=== PATIENT | male | born 2000 | race African-American/Black ===

== ENCOUNTER 2018-08-29 09:25 | Inpatient (IN) ==
[2018-08-29] MEDS ORDERED: SODIUM CHLORIDE 0.9% 1000ML 1,000 ML IV STA (10:05)
--- NOTE | 2018-08-29 10:28 | XRay Report ---
XR chest 1V portable CLINICAL HISTORY: weakness mental status change COMPARISON STUDY: No previous studies for comparison. FINDINGS: The bones soft tissues and hemidiaphragms are normal. The cardiomediastinal silhouette is n ormal. The lungs are clear. The pulmonary vasculature is normal. IMPRESSION: Negative chest. The above report was generated using voice recognition software. It may contain grammatical, syntax or spelling errors. Electronically signed by: Donald Xiao M.D. 08/29/2018 10:26 AM
[2018-08-29] MEDS: SODIUM CHLORIDE 0.9% 1000ML 1,000 ML IV SCH ×2 (10:35→13:59)
[2018-08-29 10:40] LABS: Appearance Urine Clear (Clear); Bilirubin Urine Negative (Negative); Blood Urine Negative (Negative); Color Urine Yellow; Glucose Urine UA 3+ (Negative); Leukocyte Esterase Urine Negative (Negative); Nitrite Urine Negative (Negative); Protein Urine Negative (Negative); Specific Gravity Urine 1.037 (1.000-1.030); Urobilinogen Urine Negative (Negative)
[2018-08-29 10:45] LABS: Ketones Urine 4+ (Negative)
[2018-08-29 11:01] LABS: Basophils # (auto) 0.01 K/uL (0-0.2); Basophils % (auto) 0.1 %; Eosinophils # (auto) 0.05 K/uL (0-0.5); Eosinophils % (auto) 0.5 %; Hematocrit (blood only) 50.8 % (42-52); Hemoglobin 17.3 g/dL (14.0-18.0); Immature Granulocytes # (auto) 0.01 K/uL (0.00-0.02); Immature Granulocytes % (auto) 0.1 %; Lymphocytes # (auto) 2.17 K/uL (1.2-3.4); Lymphocytes % (auto) 22.3 %; Mean Corpuscular Hgb Conc 34.1 g/dL (32-36); Mean Corpuscular Volume 87.1 fL (80-100); Mean Platelet Volume 11.6 fL (7.4-10.4); Monocytes # (auto) 0.45 K/uL (0.11-0.59); Monocytes % (auto) 4.6 %; Neutrophils # (auto) 7.03 K/uL (1.4-6.5); Neutrophils % (auto) 72.4 %; Platelet Count 297 K/uL (130-400); RDW Coefficient of Variation 12.8 % (11.5-14.5); RDW Standard Deviation 40.7 fL (36.4-46.3); Red Blood Count 5.83 M/uL (4.7-6.1); White Blood Count 9.72 K/uL (4.8-10.8)
[2018-08-29 11:34] LABS: Albumin Globulin Ratio 0.9 (0.9-2); Albumin Level 4.6 gm/dl (3.4-5.0); BUN Creatinine Ratio 11.6 (10-20); Bilirubin,Total 0.9 mg/dl (0.2-1); Calcium 10.6 mg/dl (8.5-10.1); Est GFR (African American) 55.4; Est GFR (Non-African American) 47.8; Globulin 5.2 gm/dl (2.5-4.0); Potassium 5.9 mmol/L (3.5-5.1); Total Protein 9.8 gm/dl (6.4-8.2)
[2018-08-29] MEDS ORDERED: DKA GOAL RANGE 150-250 mg/dl ONE ×2 (11:39→13:28)
[2018-08-29] MEDS ORDERED: MODERATE STRESS LEVEL ONE ×2 (11:39→13:28)
[2018-08-29] MEDS ORDERED: SODIUM CHLORIDE 0.9% 1000ML 1,000 ML IV ONE (11:39)
[2018-08-29] MEDS ORDERED: INSULIN REGULAR 250 UNITS in SODIUM CHLORIDE 0.9% 247.5 ML IV SCH (11:45)
[2018-08-29 11:46] LABS: Beta-Hydroxybutyrate 76.76 mg/dl (0.2-2.81)
[2018-08-29] MEDS ORDERED: GLUCOSE 10 TABS/TUBE PO PRN (12:30)
[2018-08-29] MEDS ORDERED: DEXTROSE 50% 50 ML SYRINGE IV PRN (12:30)
[2018-08-29] MEDS ORDERED: INSULIN HUMAN REGULAR IV BOLUS 3 UNITS in SYRINGE 0 ML IV ONE (12:30)
[2018-08-29] MEDS ORDERED: CARBOHYDRATES FOR HYPOGLYCEMIA PO PRN (12:30)
[2018-08-29] MEDS ORDERED: GLUCOSE 40% GEL 15 GM TUBE PO PRN (12:30)
[2018-08-29] MEDS ORDERED: GLUCAGON FOR INJ 1 MG VIAL IM PRN (12:30)
--- NOTE | 2018-08-29 12:47 | History & Physical Report ---
Date of Service August 29, 2018 Assessment & Plan (1) DKA (diabetic ketoacidoses): 18yo obese male presenting with DKA, new diagnosis of DM. Patient with one month of polyuria/polydipsia, occasional blurry vision and loss of appetite. Patient with family history of Type II DM. Labs with anion gap of 19, BS of 669, +urinary ketones and serum b-hydroxybutyric acid. Corrected Ch=881. K elevated at 5.9 with no EKG changes. Patient afebrile, hemodynamically stable, awake/alert and appropriate. Type I vs Type II? -Admit to PCU -Check HgAIC -Check c-peptide, insulin level, anti-insulin and CHIRAG-65 to assist with diagnosis Type I vs II -Fingersticks q 1 hour, DKA goal 150-200 -BMP, VBG, Mg and PO4 q 4 hours until gap closes -repeat LFTs in AM - elevated AP protein and glob -Keep NPO -Patient received 3L NSS in ER, will continue NSS at 125mL/hr -K=5.9, no need to supplement prior to initiation of insulin gtt -Continue insulin gtt -Diabetes education, Nutrition consultation -Patient will need outpatient followup with Ophtho Present on Admission?: Yes (2) Hypercalcemia: Ca is mildly elevated at 10.6. Most likely secondary to underlying DKA and dehydration -Treatment as above -Continue to monitor Present on Admission?: Yes (3) Hyperkalemia: K=5.9 in setting of DKA and OLGA LIDIA. No EKG changes -Admit to PCU, continuous cardiac monitoring -Treatment with IVF and insulin as above -BMP q 4 hours for DKA, monitor K and renal function Present on Admission?: Yes (4) OLGA LIDIA (acute kidney injury): BUN=23, Cr=1.96. Unknown baseline. Most likely secondary to volume contraction/osmotic diuresis in setting of DKA. Urine with high specific gravity, glucose and ketones. No protein. -IVF as above -BMP q 4 hours -Monitor I/Os -Avoid nephrotoxic agents F/E/N- Patient received 3L NSS bolus in ER, will continue NSS at 125mL/hr, BMP/Mg/PO4 q 4 hours until gap closes, NPO for now Ppx - Patient low risk for DVT, no ppx indicated Code - Full Dispo - Admit to PCU Family - discussed on phone with patient's father. They are from [place] and plan to drive in tonight or tomorrow morning. Present on Admission?: Yes History of Present Illness Chief Complaint: DKA Primary Care Provider: [facility] Sha Pastor is a 18yo male presenting with DKA. Patient reports experiencing polydipsia and polyuria for approximately one month. Also with loss of appetite over the last week and occasional blurry vision. He also reports poor sleep. Patient felt ill today, was breathing hard which prompted him to seek medical care. Patient states that he feels thirsty, otherwise no complaints. On arrival to the ER he was found to be afebrile, hypertensive initially at 165/106. Blood work confirmed anion gap, elevated blood sugar at 669, UA positive for ketones and BHB level of 76.76. Patient also with mild OLGA LIDIA, BUN of 23 and Cr of 1.96. ER Course: NSS x 3 L, insulin gtt Allergies Allergy/AdvReac Type Severity Reaction Status Date / Time pollen extracts Allergy Sneezing Unverified 08/29/18 10:04 Home Medications Home Medications Medication Instructions Recorded Confirmed Type Claritin 10 mg PO DAILY 08/29/18 08/29/18 History Flonase Allergy Relief 1 spray DEBORA DAILY 08/29/18 08/29/18 History Past Med/Surg History Medical History No significant past surgical history Seasonal allergies Family History Other Diabetes Social History current occupational status: student Feels Safe at Home: Yes Smoking Status: Never smoker Hx Alcohol Use: No Hx Substance Use: No Review of Systems Review of Systems: All systems reviewed & are unremarkable except as noted in HPI & below Physical Exam Physical Exam: General: patient resting comfortably, NAD, non-toxic in appearance, AA&O x 4 Skin: warm, dry, intact, no rashes or lesions HEENT: NC/AT, PERRL, EOMI, anicteric sclera, conjunctiva without injection, external ear normal to inspection and nontender, nares patent, DRY mucus membra wesley, dentition intact, no oropharyngeal lesions, neck supple, trachea midline, no LAD, no thyromegaly, no JVD Heart: +S1/S2, regular, no m/r/g Lungs: equal air entry bilaterally, no rales/rhonchi/wheezes Abd: +BS, soft, NT/ND, no masses/organomegaly/ascites Ext: warm, 2+ pulses in UE/LE bilaterally, no clubbing/cyanosis or edema Neuro: nonfocal, patient AA&O x 4, speech intact, no facial droop, moving all extremities on command with equal strength 5/5 Results & Data Vital Signs (Past 12 Hours) Vital Signs Temp Pulse Pulse Resp BP BP Pulse Ox 08/29/18 12:15 98 H 24 124/89 98 08/29/18 10:55 88 16 165/106 H 98 08/29/18 09:35 36.8 C 102 H 20 128/68 97 Laboratory Results Lab Results 08/29/18 08/29/18 08/29/18 Range/Units 09:53 10:12 10:12 WBC 9.72 (4.8-10.8) K/uL RBC 5.83 (4.7-6.1) M/uL Hgb 17.3 (14.0-18.0) g/dL Hct 50.8 (42-52) % MCV 87.1 (80-100) fL MCH 29.7 (25-34) pg MCHC 34.1 (32-36) g/dL RDW Std Deviation 40.7 (36.4-46.3) fL RDW Coeff of Janet 12.8 (11.5-14.5) % Plt Count 297 (130-400) K/uL MPV 11.6 H (7.4-10.4) fL Immature Gran % (Auto) 0.1 % Neut % (Auto) 72.4 % Lymph % (Auto) 22.3 % [place] % (Auto) 4.6 % Eos % (Auto) 0.5 % Baso % (Auto) 0.1 % Immature Gran # (Auto) 0.01 (0.00-0.02) K/uL Neut # (Auto) 7.03 H (1.4-6.5) K/uL Lymph # (Auto) 2.17 (1.2-3.4) K/uL [place] # (Auto) 0.45 (0.11-0.59) K/uL Eos # (Auto) 0.05 (0-0.5) K/uL Baso # (Auto) 0.01 (0-0.2) K/uL Sodium 130 L (136-145) mmol/L Potassium 5.9 H (3.5-5.1) mmol/L Chloride 92 L (98-107) mmol/L Carbon Dioxide 19 L (21-32) mmol/L Anion Gap 19.0 H (3-11) BUN 23 H (7-18) mg/dl Creatinine 1.96 H (0.6-1.4) mg/dl Est Cr Clr Drug Dosing 78.0 ml/min Est GFR ( Amer) 55.4 Est GFR (Non-Af Amer) 47.8 BUN/Creatinine Ratio 11.6 (10-20) Glucose 669 H* (70-99) mg/dl POC Glucose > 600 H* (70-99) Calcium 10.6 H (8.5-10.1) mg/dl Total Bilirubin 0.9 (0.2-1) mg/dl AST 17 (15-37) U/L ALT 38 (12-78) U/L Alkaline Phosphatase 196 H (45-117) U/L Total Protein 9.8 H (6.4-8.2) gm/dl Albumin 4.6 (3.4-5.0) gm/dl Globulin 5.2 H (2.5-4.0) gm/dl Albumin/Globulin Ratio 0.9 (0.9-2) Beta-Hydroxybutyric Acd 76.76 H (0.2-2.81) mg/dl TSH 1.710 (0.300-4.500) uIu/ml Urine Color Urine Appearance (Clear) Urine pH (4.5-7.5) Ur Specific [place] (1.000-1.030) Urine Protein (Negative) Urine Glucose (UA) (Negative) Urine Ketones (Negative) Urine Blood (Negative) Urine Nitrite (Negative) Urine Bilirubin (Negative) Urine Urobilinogen (Negative) Ur Leukocyte Esterase (Negative) 08/29/18 08/29/18 Range/Units 10:23 12:03 WBC (4.8-10.8) K/uL RBC (4.7-6.1) M/uL Hgb (14.0-18.0) g/dL Hct (42-52) % MCV (80-100) fL MCH (25-34) pg MCHC (32-36) g/dL RDW Std Deviation (36.4-46.3) fL RDW Coeff of Janet (11.5-14.5) % Plt Count (130-400) K/uL MPV (7.4-10.4) fL Immature Gran % (Auto) % Neut % (Auto) % Lymph % (Auto) % [place] % (Auto) % Eos % (Auto) % Baso % (Auto) % Immature Gran # (Auto) (0.00-0.02) K/uL Neut # (Auto) (1.4-6.5) K/uL Lymph # (Auto) (1.2-3.4) K/uL [place] # (Auto) (0.11-0.59) K/uL Eos # (Auto) (0-0.5) K/uL Baso # (Auto) (0-0.2) K/uL Sodium (136-145) mmol/L Potassium (3.5-5.1) mmol/L Chloride (98-107) mmol/L Carbon Dioxide (21-32) mmol/L Anion Gap (3-11) BUN (7-18) mg/dl Creatinine (0.6-1.4) mg/dl Est Cr Clr Drug Dosing ml/min Est GFR ( Amer) Est GFR (Non-Af Amer) BUN/Creatinine Ratio (10-20) Glucose (70-99) mg/dl POC Glucose 523 H* (70-99) Calcium (8.5-10.1) mg/dl Total Bilirubin (0.2-1) mg/dl AST (15-37) U/L ALT (12-78) U/L Alkaline Phosphatase (45-117) U/L Total Protein (6.4-8.2) gm/dl Albumin (3.4-5.0) gm/dl Globulin (2.5-4.0) gm/dl Albumin/Globulin Ratio (0.9-2) Beta-Hydroxybutyric Acd (0.2-2.81) mg/dl TSH (0.300-4.500) uIu/ml Urine Color Yellow Urine Appearance Clear (Clear) Urine pH 5.0 (4.5-7.5) Ur Specific [place] 1.037 H (1.000-1.030) Urine Protein Negative (Negative) Urine Glucose (UA) 3+ H (Negative) Urine Ketones 4+ H (Negative) Urine Blood Negative (Negative) Urine Nitrite Negative (Negative) Urine Bilirubin Negative (Negative) Urine Urobilinogen Negative (Negative) Ur Leukocyte Esterase Negative (Negative) Diagnostic Findings XR chest 1V portable CLINICAL HISTORY: weakness mental status change COMPARISON STUDY: No previous studies for comparison. FINDINGS: The bones soft tissues and hemidiaphragms are normal. The cardiomediastinal silhouette is normal. The lungs are clear. The pulmonary vasculature is normal. IMPRESSION: Negative chest. The above report was generated using voice recognition software. It may contain grammatical, syntax or spelling errors. Electronically signed by: Donald Xiao M.D. 08/29/2018 10:26 AM Dictated: 08/29/18 1026 ECG Additional Comments: The study shows NSR at 80bpm, normal axis and intervals, ST changes most consistent with early repolarization Code Status & VTE Plan Code Status FULL Critical Care Time Critical Care Time: No (1) DKA (diabetic ketoacidoses) Diabetes mellitus complication detail: without coma
[2018-08-29] MEDS ORDERED: INSULIN ASPART 100 UNITS/ML 3 ML PEN SC SCH (13:00)
[2018-08-29] MEDS ORDERED: ACETAMINOPHEN 325 MG TAB PO PRN (13:28)
[2018-08-29] MEDS ORDERED: ONDANSETRON INJ 2 MG/ML 2 ML VIAL IV PRN (13:28)
[2018-08-29] MEDS ORDERED: SODIUM CHLORIDE 0.9% 1000ML 1,000 ML IV SCH (13:28)
[2018-08-29] MEDS ORDERED: PNEUMOCOCCAL ADMINISTRATION CHARGE ONE (14:00)
[2018-08-29] MEDS ORDERED: PNEUMOCOCCAL POLYSACCHARIDES 25 MCG/0.5 ML VIAL/SYR IM ONE (14:00)
[2018-08-29] MEDS: INSULIN REGULAR 250 UNITS in SODIUM CHLORIDE 0.9% 247.5 ML IV SCH (14:10)
[2018-08-29 15:27] LABS: BUN Creatinine Ratio 12.8 (10-20); Calcium 9.4 mg/dl (8.5-10.1); Creatinine Clr Calc Pharmacy 103.3 ml/min; Est GFR (African American) 77.8; Est GFR (Non-African American) 67.2; Magnesium 2.6 mg/dl (1.8-2.4); Phosphorus 3.1 mg/dl (2.5-4.9)
[2018-08-29 15:28] LABS: Potassium 4.6 mmol/L (3.5-5.1)
[2018-08-29] MEDS ORDERED: PENDING D5 1/2NSS IVF SCH (16:00)
[2018-08-29] MEDS: D5W AND 1/2NSS 1,000 ML IV SCH (16:15)
--- NOTE | 2018-08-29 17:28 | Emergency Department Note ---
Entered by Alyssa Rosen acting as a scribe for Billy Ruby MD ED Provider Note CHIEF COMPLAINT: Frequent Urination HISTORY OF PRESENT ILLNESS: The patient is a 18 year old male who presents to the Emergency Room with complaints of frequent urination over the last 2 weeks. He also reports feeling fatigued. The patient reports that he has had intermittent blurred vision and nausea. The patient states that he has not had an appetite for solid foods. He reports a history of allergies but no other medical problems. He states that both of his parents have type II diabetes. The patient states that he has been urinating about 10-15 times per day and reports increased thirst. He reports some abdominal pain and 1 episode of diarrhea. Pt denies LOC, headache, fevers, chills, diaphoresis, neck pain, chest pain, breathing difficulties, vomiting, back pain, melena, hematochezia, numbness, weakness, lymphadenopathy, rash, or other complaints. REVIEW OF SYSTEMS: See HPI for pertinent positives and negatives. A total of ten systems were reviewed and were otherwise negative. PMHx/PSHx: Allergies, family history of type II diabetes SOCIAL HISTORY: Patient lives at home. PHYSICAL EXAM: GENERAL: Awake, alert, well-appearing, in no distress HENT: Normocephalic, atraumatic. Oropharynx unremarkable. Dry mucous membranes. EYES: PERRL. Normal conjunctiva. Sclera non-icteric. NECK: Inspection normal. Non-tender. Supple. No nuchal rigidity. FROM. No masses. RESPIRATORY: Clear to auscultation. No wheezes. No rales. Normal respiratory effort. CARDIAC: Normal rate. Normal rhythm. No murmurs. No rubs. Extremities warm and well perfused. Pulses equal. No JVD. GI: Soft, non-distended. No tenderness to palpation. No rebound or guarding. No masses. RECTAL: Deferred. MUSCULOSKELETAL: Atraumatic. Chest examination reveals no tenderness. The back is symmetrical on inspection without obvious abnormality. There is no CVA tenderness to palpation. No joint edema. LOWER EXTREMITIES: Calves are equal size bilaterally and non-tender. No edema. No discoloration. NEURO: Normal sensorium. No sensory or motor deficits noted. SKIN: No rash or jaundice noted. EMERGENCY DEPARTMENT COURSE: 1003: Past medical records reviewed. The patient was evaluated in room B5, and a complete history and physical examination were performed. 1142: I updated the patient who verbalized agreement and understanding of the treatment plan. 1144: I discussed the patient's case with Dr. Lakeshia Ronquillo who will evaluate the patient for further management. MEDICAL DECISION MAKING: Nursing notes reviewed and agree them. The patient's history was concerning for polyuria, polydipsia, weakness Differential diagnosis: Etiologies such as metabolic, infection, hypo/hyperglycemia, electrolyte abnorma lities, cardiac sources, intracerebral event, toxicologic, neurologic, as well as others were entertained. Physical examination: As above. ER treatment provided: IV Lock Normal saline hydration 2 L bolus Saline hydration maintenance Additional 1 L of normal saline hydration Insulin drip per protocol On reassessment the patient felt better. Diagnostics interpretation by me: ECG: No acute ischemia The labs revealed an unremarkable CBC. Chemistry panel was concerning for DKA with severe hyperglycemia. He also had hyperkalemia and hypercalcemia. Acute kidney injury was noted. Urinalysis shows significant glucose. Imaging studies: Chest imaging negative. Patient appears to have new onset diabetes and DKA. He will need admission to renal insufficiency. Consultation: A consultation was placed with the hospitalist. The case was discussed and diagnostics were reviewed. The patient was evaluated in the ER for further treatment. IMPRESSION: DKA, hyperkalemia, hypercalcemia, OLGA LIDIA PLAN: Admitted The scribe's documentation has been prepared under my direction and personally reviewed by me in its entirety. I confirm that the note above accurately reflects all work, treatment, procedures, and medical decision making performed by me. CRITICAL CARE: I have personally spent 30 minutes of critical care time in the direct management of this patient. This includes bedside care, interpretation of diagnostic studies, and testing, discussion with consultants and patient, and other required patient management activities. This 30 minutes is in excess of all separately billable procedures. Impression & Plan DKA (diabetic ketoacidoses), Hyperkalemia, Hypercalcemia, OLGA LIDIA (acute kidney injury) Past Med/Surg History Medical History No significant past surgical history Seasonal allergies Family History Other Diabetes Social History Preferred Language: [place] Communication Ability: Effective Transformation Lead Required: No Beliefs That Will Affect Care: None Current Living Situation: Other Current Living Situation Comment: roommates current occupational status: student Other Information That Helps Us Care for You: No Feels Safe at Home: Yes Safety Concerns: Feels Safe At This Time Smoking Status: Never smoker Do You Dip or Chew Tobacco: No Second Hand Exposure: No Tobacco Cessation Education Requested by Patient: No Hx Alcohol Use: No Hx Substance Use: No Results & Data Vital Signs Vital Signs - 24 hr 08/29/18 09:35 08/29/18 10:55 08/29/18 12:15 Temperature 36.8 C Temperature Source Oral Sepsis Recent Fever Within 48 Hours No Sepsis Action Taken by Nursing No Action Required Pulse Rate 102 H Pulse Rate [Finger] 88 98 H Pulse Rhythm [Finger] Regular Respiratory Rate 20 16 24 Respiratory Effort / Characteristics Non-Labored Non-Labored Spontaneous Respiratory Depth Normal Normal Respiratory Pattern Regular Blood Pressure 128/68 Blood Pressure [Right Arm] 165/106 H 124/89 Blood Pressure Mean 88 Blood Pressure Mean [Right Arm] 125 100 Blood Pressure Position [Right Arm] Sitting Pulse Oximetry 97 98 98 Oxygen Delivery Method Room Air Room Air Room Air 08/29/18 13:00 08/29/18 13:28 08/29/18 14:28 Temperature Temperature Source Sepsis Recent Fever Within 48 Hours Sepsis Action Taken by Nursing Pulse Rate 108 H Pulse Rate [Finger] 92 H 95 H Pulse Rhythm [Finger] Respiratory Rate 16 19 Respiratory Effort / Characteristics Respiratory Depth Respiratory Pattern Blood Pressure Blood Pressure [Right Arm] 145/84 H 133/79 Blood Pressure Mean Blood Pressure Mean [Right Arm] 104 97 Blood Pressure Position [Right Arm] Pulse Oximetry 98 98 Oxygen Delivery Method Room Air Room Air 08/29/18 15:33 Temperature 37.1 C Temperature Source Oral Sepsis Recent Fever Within 48 Hours Sepsis Action Taken by Nursing Pulse Rate Pulse Rate [Finger] 98 H Pulse Rhythm [Finger] Respiratory Rate 19 Respiratory Effort / Characteristics Respiratory Depth Respiratory Pattern Blood Pressure Blood Pressure [Right Arm] 131/77 Blood Pressure Mean Blood Pressure Mean [Right Arm] 95 Blood Pressure Position [Right Arm] Lying Pulse Oximetry 99 Oxygen Delivery Method Room Air Home Medications Current Medication List: was personally reviewed by me Laboratory Data Attestation: I reviewed the patient's lab results. Result diagrams: 08/29/18 10:12 08/29/18 14:55 Lab Results 08/29/18 08/29/18 08/29/18 Range/Units 09:53 10:12 10:12 WBC 9.72 (4.8-10.8) K/uL RBC 5.83 (4.7-6.1) M/uL Hgb 17.3 (14.0-18.0) g/dL Hct 50.8 (42-52) % MCV 87.1 (80-100) fL MCH 29.7 (25-34) pg MCHC 34.1 (32-36) g/dL RDW Std Deviation 40.7 (36.4-46.3) fL RDW Coeff of Janet 12.8 (11.5-14.5) % Plt Count 297 (130-400) K/uL MPV 11.6 H (7.4-10.4) fL Immature Gran % (Auto) 0.1 % Neut % (Auto) 72.4 % Lymph % (Auto) 22.3 % [place] % (Auto) 4.6 % Eos % (Auto) 0.5 % Baso % (Auto) 0.1 % Immature Gran # (Auto) 0.01 (0.00-0.02) K/uL Neut # (Auto) 7.03 H (1.4-6.5) K/uL Lymph # (Auto) 2.17 (1.2-3.4) K/uL [place] # (Auto) 0.45 (0.11-0.59) K/uL Eos # (Auto) 0.05 (0-0.5) K/uL Baso # (Auto) 0.01 (0-0.2) K/uL VBG pH (7.36-7.41) Sodium 130 L (136-145) mmol/L Potassium 5.9 H (3.5-5.1) mmol/L Chloride 92 L (98-107) mmol/L Carbon Dioxide 19 L (21-32) mmol/L Anion Gap 19.0 H (3-11) BUN 23 H (7-18) mg/dl Creatinine 1.96 H (0.6-1.4) mg/dl Est Cr Clr Drug Dosing 78.0 ml/min Est GFR ( Amer) 55.4 Est GFR (Non-Af Amer) 47.8 BUN/Creatinine Ratio 11.6 (10-20) Glucose 669 H* (70-99) mg/dl POC Glucose > 600 H* (70-99) Calcium 10.6 H (8.5-10.1) mg/dl Phosphorus (2.5-4.9) mg/dl Magnesium (1.8-2.4) mg/dl Total Bilirubin 0.9 (0.2-1) mg/dl AST 17 (15-37) U/L ALT 38 (12-78) U/L Alkaline Phosphatase 196 H (45-117) U/L Total Protein 9.8 H (6.4-8.2) gm/dl Albumin 4.6 (3.4-5.0) gm/dl Globulin 5.2 H (2.5-4.0) gm/dl Albumin/Globulin Ratio 0.9 (0.9-2) Beta-Hydroxybutyric Acd 76.76 H (0.2-2.81) mg/dl TSH 1.710 (0.300-4.500) uIu/ml Urine Color Urine Appearance (Clear) Urine pH (4.5-7.5) Ur Specific [place] (1.000-1.030) Urine Protein (Negative) Urine Glucose (UA) (Negative) Urine Ketones (Negative) Urine Blood (Negative) Urine Nitrite (Negative) Urine Bilirubin (Negative) Urine Urobilinogen (Negative) Ur Leukocyte Esterase (Negative) 08/29/18 08/29/18 08/29/18 Range/Units 10:23 12:03 14:09 WBC (4.8-10.8) K/uL RBC (4.7-6.1) M/uL Hgb (14.0-18.0) g/dL Hct (42-52) % MCV (80-100) fL MCH (25-34) pg MCHC (32-36) g/dL RDW Std Deviation (36.4-46.3) fL RDW Coeff of Janet (11.5-14.5) % Plt Count (130-400) K/uL MPV (7.4-10.4) fL Immature Gran % (Auto) % Neut % (Auto) % Lymph % (Auto) % [place] % (Auto) % Eos % (Auto) % Baso % (Auto) % Immature Gran # (Auto) (0.00-0.02) K/uL Neut # (Auto) (1.4-6.5) K/uL Lymph # (Auto) (1.2-3.4) K/uL [place] # (Auto) (0.11-0.59) K/uL Eos # (Auto) (0-0.5) K/uL Baso # (Auto) (0-0.2) K/uL VBG pH (7.36-7.41) Sodium (136-145) mmol/L Potassium (3.5-5.1) mmol/L Chloride (98-107) mmol/L Carbon Dioxide (21-32) mmol/L Anion Gap (3-11) BUN (7-18) mg/dl Creatinine (0.6-1.4) mg/dl Est Cr Clr Drug Dosing ml/min Est GFR ( Amer) Est GFR (Non-Af Amer) BUN/Creatinine Ratio (10-20) Glucose (70-99) mg/dl POC Glucose 523 H* 326 H* (70-99) Calcium (8.5-10.1) mg/dl Phosphorus (2.5-4.9) mg/dl Magnesium (1.8-2.4) mg/dl Total Bilirubin (0.2-1) mg/dl AST (15-37) U/L ALT (12-78) U/L Alkaline Phosphatase (45-117) U/L Total Protein (6.4-8.2) gm/dl Albumin (3.4-5.0) gm/dl Globulin (2.5-4.0) gm/dl Albumin/Globulin Ratio (0.9-2) Beta-Hydroxybutyric Acd (0.2-2.81) mg/dl TSH (0.300-4.500) uIu/ml Urine Color Yellow Urine Appearance Clear (Clear) Urine pH 5.0 (4.5-7.5) Ur Specific [place] 1.037 H (1.000-1.030) Urine Protein Negative (Negative) Urine Glucose (UA) 3+ H (Negative) Urine Ketones 4+ H (Negative) Urine Blood Negative (Negative) Urine Nitrite Negative (Negative) Urine Bilirubin Negative (Negative) Urine Urobilinogen Negative (Negative) Ur Leukocyte Esterase Negative (Negative) 08/29/18 08/29/18 08/29/18 Range/Units 14:55 14:55 14:59 WBC (4.8-10.8) K/uL RBC (4.7-6.1) M/uL Hgb (14.0-18.0) g/dL Hct (42-52) % MCV (80-100) fL MCH (25-34) pg MCHC (32-36) g/dL RDW Std Deviation (36.4-46.3) fL RDW Coeff of Janet (11.5-14.5) % Plt Count (130-400) K/uL MPV (7.4-10.4) fL Immature Gran % (Auto) % Neut % (Auto) % Lymph % (Auto) % [place] % (Auto) % Eos % (Auto) % Baso % (Auto) % Immature Gran # (Auto) (0.00-0.02) K/uL Neut # (Auto) (1.4-6.5) K/uL Lymph # (Auto) (1.2-3.4) K/uL [place] # (Auto) (0.11-0.59) K/uL Eos # (Auto) (0-0.5) K/uL Baso # (Auto) (0-0.2) K/uL VBG pH 7.33 L (7.36-7.41) Sodium 141 D (136-145) mmol/L Potassium 4.6 D (3.5-5.1) mmol/L Chloride 109 H (98-107) mmol/L Carbon Dioxide 18 L (21-32) mmol/L Anion Gap 14.0 H (3-11) BUN 19 H (7-18) mg/dl Creatinine 1.48 H D (0.6-1.4) mg/dl Est Cr Clr Drug Dosing 103.3 ml/min Est GFR ( Amer) 77.8 Est GFR (Non-Af Amer) 67.2 BUN/Creatinine Ratio 12.8 (10-20) Glucose 300 H (70-99) mg/dl POC Glucose 258 H (70-99) Calcium 9.4 (8.5-10.1) mg/dl Phosphorus 3.1 (2.5-4.9) mg/dl Magnesium 2.6 H (1.8-2.4) mg/dl Total Bilirubin (0.2-1) mg/dl AST (15-37) U/L ALT (12-78) U/L Alkaline Phosphatase (45-117) U/L Total Protein (6.4-8.2) gm/dl Albumin (3.4-5.0) gm/dl Globulin (2.5-4.0) gm/dl Albumin/Globulin Ratio (0.9-2) Beta-Hydroxybutyric Acd (0.2-2.81) mg/dl TSH (0.300-4.500) uIu/ml Urine Color Urine Appearance (Clear) Urine pH (4.5-7.5) Ur Specific [place] (1.000-1.030) Urine Protein (Negative) Urine Glucose (UA) (Negative) Urine Ketones (Negative) Urine Blood (Negative) Urine Nitrite (Negative) Urine Bilirubin (Negative) Urine Urobilinogen (Negative) Ur Leukocyte Esterase (Negative) 08/29/18 08/29/18 Range/Units 15:57 17:00 WBC (4.8-10.8) K/uL RBC (4.7-6.1) M/uL Hgb (14.0-18.0) g/dL Hct (42-52) % MCV (80-100) fL MCH (25-34) pg MCHC (32-36) g/dL RDW Std Deviation (36.4-46.3) fL RDW Coeff of Janet (11.5-14.5) % Plt Count (130-400) K/uL MPV (7.4-10.4) fL Immature Gran % (Auto) % Neut % (Auto) % Lymph % (Auto) % [place] % (Auto) % Eos % (Auto) % Baso % (Auto) % Immature Gran # (Auto) (0.00-0.02) K/uL Neut # (Auto) (1.4-6.5) K/uL Lymph # (Auto) (1.2-3.4) K/uL [place] # (Auto) (0.11-0.59) K/uL Eos # (Auto) (0-0.5) K/uL Baso # (Auto) (0-0.2) K/uL VBG pH (7.36-7.41) Sodium (136-145) mmol/L Potassium (3.5-5.1) mmol/L Chloride (98-107) mmol/L Carbon Dioxide (21-32) mmol/L Anion Gap (3-11) BUN (7-18) mg/dl Creatinine (0.6-1.4) mg/dl Est Cr Clr Drug Dosing ml/min Est GFR ( Amer) Est GFR (Non-Af Amer) BUN/Creatinine Ratio (10-20) Glucose (70-99) mg/dl POC Glucose 245 H 221 H (70-99) Calcium (8.5-10.1) mg/dl Phosphorus (2.5-4.9) mg/dl Magnesium (1.8-2.4) mg/dl Total Bilirubin (0.2-1) mg/dl AST (15-37) U/L ALT (12-78) U/L Alkaline Phosphatase (45-117) U/L Total Protein (6.4-8.2) gm/dl Albumin (3.4-5.0) gm/dl Globulin (2.5-4.0) gm/dl Albumin/Globulin Ratio (0.9-2) Beta-Hydroxybutyric Acd (0.2-2.81) mg/dl TSH (0.300-4.500) uIu/ml Urine Color Urine Appearance (Clear) Urine pH (4.5-7.5) Ur Specific [place] (1.000-1.030) Urine Protein (Negative) Urine Glucose (UA) (Negative) Urine Ketones (Negative) Urine Blood (Negative) Urine Nitrite (Negative) Urine Bilirubin (Negative) Urine Urobilinogen (Negative) Ur Leukocyte Esterase (Negative) Administered Medications Insulin Human Regular 250 (units/ Sodium Chloride) 250 mls @ 1.4 mls/hr IV .Q24H [facility]; Protocol Stop: 09/28/18 13:44 Last Titration: 08/29/18 15:04 Dose: 1.4 units/hr, 1.4 mls/hr Documented by: [id number] Cosigned by: [id number] Titration: 08/29/18 14:30 Dose: 1.7 units/hr, 1.7 mls/hr Documented by: [id number] Cosigned by: [id number] Admin: 08/29/18 14:10 Dose: 2.9 units/hr, 2.9 mls/hr Documented by: [id number] Cosigned by: [id number] Discontinued Medications Sodium Chloride (Nss 1000ml) 1,000 mls @ 999 mls/hr IV .Q1H1M MICHAEL Stop: 08/29/18 12:15 Last Admin: 08/29/18 13:59 Dose: 999 mls/hr Documented by: [id number] Infusion: 08/29/18 11:40 Dose: 0 mls/hr Documented by: [id number] Admin: 08/29/18 10:35 Dose: 999 mls/hr Documented by: [id number] Sodium Chloride (Nss 1000ml) 1,000 mls @ 125 mls/hr IV .Q8H STA Stop: 08/29/18 18:04 Last Admin: 08/29/18 10:50 Dose: 125 mls/hr Documented by: [id number] Insulin Human Regular 250 (units/ Sodium Chloride) 250 mls @ 2.9 mls/hr IV .Q24H MICHAEL; Protocol Stop: 09/28/18 11:44 Last Admin: 08/29/18 12:56 Dose: 2.9 units/hr, 2.9 mls/hr Documented by: [id number] Cosigned by: [id number] Sodium Chloride (Nss 1000ml) 1,000 mls @ 999 mls/hr IV .Q1H1M ONE Stop: 08/29/18 12:39 Last Admin: 08/29/18 12:56 Dose: 999 mls/hr Documented by: [id number] Insulin Human Regular 3 units/ (Syringe) 3 mls @ 18 mls/min IV TODAY@1230 ONE Stop: 08/29/18 12:31 Last Admin: 08/29/18 12:56 Dose: 18 mls/min Documented by: [id number] Cosigned by: [id number] Sodium Chloride (Nss 1000ml) 1,000 mls @ 125 mls/hr IV .Q8H MICHAEL Stop: 08/29/18 16:14 Last Admin: 08/29/18 14:21 Dose: 125 mls/hr Documented by: [id number] Imaging Data Radiologist's Impression: Radiology results as stated below per my review and the radiologist's interpretation: XR chest 1V portable CLINICAL HISTORY: weakness mental status change COMPARISON STUDY: No previous studies for comparison. FINDINGS: The bones soft tissues and hemidiaphragms are normal. The cardiomediastinal silhouette is normal. The lungs are clear. The pulmonary vasculature is normal. IMPRESSION: Negative chest. The above report was generated using voice recognition software. It may contain grammatical, syntax or spelling errors. Electronically signed by: Donald Xiao M.D. 08/29/2018 10:26 AM ECG Data Attestation: I personally reviewed and interpreted this ECG as follows: Indication: other (fatigue) Rate (beats per minute): 80 Rhythm: normal sinus Findings: + other (LVH with repolarization, no reciprocal changes) and + ST joby vation (consistent with repolarization); no PAC, no PVC and no ectopy Blood Pressure Blood Pressure Findings: Elevated blood pressure Blood Pressure Disposition: further management by hospitalist Discharge Plan Visit Data *Final* Discharge Date/Time: 08/29/18 13:10 Chief Complaint: Urinary Symptoms Stated Complaint: CONSTANT URINATION,FATIGUE,THRIST,NO APPETITE ED Provider: Billy Ruby Discharge Problem: DKA (diabetic ketoacidoses), Hyperkalemia, Hypercalcemia, OLGA LIDIA (acute kidney injury) Patient Disposition: Admitted As Inpatient Discharge Instructions Interventions: ED Discharge Assessment Last Done: 08/29/18 13:10 Discharge Problem: DKA (diabetic ketoacidoses) Qualifiers: Diabetes mellitus complication detail: without coma The scribe's documentation has been prepared under my direction and personally reviewed by me in its entirety. I confirm that the note above accurately reflects all work, treatment, procedures, and medical decision making performed by me.
[2018-08-29 18:15] LABS: BUN Creatinine Ratio 12.2 (10-20); Calcium 9.6 mg/dl (8.5-10.1); Creatinine Clr Calc Pharmacy 117.6 ml/min; Est GFR (Non-African American) 78.5; Magnesium 2.6 mg/dl (1.8-2.4); Potassium 4.4 mmol/L (3.5-5.1)
[2018-08-29 18:16] LABS: Phosphorus 2.9 mg/dl (2.5-4.9)
[2018-08-29] MEDS: INSULIN ASPART 100 UNITS/ML 3 ML PEN SC SCH ×2 (18:59→20:56)
[2018-08-29 22:30] LABS: BUN Creatinine Ratio 11.5 (10-20); Calcium 9.7 mg/dl (8.5-10.1); Creatinine Clr Calc Pharmacy 115.8 ml/min; Est GFR (African American) 89.4; Est GFR (Non-African American) 77.1; Magnesium 2.4 mg/dl (1.8-2.4); Phosphorus 2.7 mg/dl (2.5-4.9); Potassium 4.5 mmol/L (3.5-5.1)
[2018-08-30] MEDS: D5W AND 1/2NSS 1,000 ML IV SCH ×2 (00:30→08:56)
[2018-08-30 01:45] LABS: BUN Creatinine Ratio 11.9 (10-20); Creatinine Clr Calc Pharmacy 120.3 ml/min; Est GFR (African American) 93.6; Est GFR (Non-African American) 80.8; Magnesium 2.4 mg/dl (1.8-2.4); Potassium 4.1 mmol/L (3.5-5.1)
[2018-08-30 01:46] LABS: Phosphorus 2.7 mg/dl (2.5-4.9)
[2018-08-30 06:19] LABS: Estimated Average Glucose 361 mg/dl; Hemoglobin A1C 14.2 % (4.5-5.6)
[2018-08-30 07:11] LABS: Albumin Level 3.5 gm/dl (3.4-5.0); BUN Creatinine Ratio 10.9 (10-20); Bilirubin Direct 0.2 mg/dl (0-0.2); Calcium 9.2 mg/dl (8.5-10.1); Creatinine Clr Calc Pharmacy 114.9 ml/min; Est GFR (African American) 88.6; Est GFR (Non-African American) 76.4; Magnesium 2.3 mg/dl (1.8-2.4); Potassium 4.1 mmol/L (3.5-5.1)
[2018-08-30 07:17] LABS: Bilirubin,Total 0.7 mg/dl (0.2-1); Phosphorus 2.7 mg/dl (2.5-4.9); Total Protein 7.5 gm/dl (6.4-8.2)
[2018-08-30] MEDS: INSULIN ASPART 100 UNITS/ML 3 ML PEN SC SCH ×4 (08:57→20:51)
[2018-08-30 09:49] LABS: BUN Creatinine Ratio 10.7 (10-20); Calcium 9.8 mg/dl (8.5-10.1); Creatinine Clr Calc Pharmacy 114.1 ml/min; Est GFR (African American) 87.8; Est GFR (Non-African American) 75.7; Magnesium 2.4 mg/dl (1.8-2.4); Phosphorus 2.8 mg/dl (2.5-4.9); Potassium 4.3 mmol/L (3.5-5.1)
[2018-08-30] MEDS ORDERED: PHARMACY GLYCEMIC MGMT CONSULT PRN (11:09)
[2018-08-30] MEDS ORDERED: INSULIN GLARGINE SOLOSTAR 100 UNITS/ML 3 ML PEN SC ONE (12:30)
[2018-08-30] MEDS: INSULIN REGULAR 250 UNITS in SODIUM CHLORIDE 0.9% 247.5 ML IV SCH (15:49)
--- NOTE | 2018-08-30 15:53 | Pharmacy Report ---
Glycemic Control Consultation - Date of Service August 30, 2018 - Scope Scope: Glycemic Pharmacist consulted by Dr Bo on 08/30/18 for glycemic control and to write orders per [facility] inpatient glycemic control protocol - Objective Weight: 116.3 kg Accuchecks BSG (last 24hrs): 08/29/18 08/29/18 08/29/18 14:55 15:57 17:00 Glucose 300 H POC Glucose 245 H 221 H 08/29/18 08/29/18 08/29/18 17:39 18:05 19:50 Glucose 251 H POC Glucose 237 H 246 H 08/29/18 08/29/18 08/30/18 21:46 23:57 01:19 Glucose 254 H 251 H POC Glucose 239 H 08/30/18 08/30/18 08/30/18 04:03 06:17 08:03 Glucose 256 H POC Glucose 234 H 237 H 08/30/18 08/30/18 09:21 12:12 Glucose 251 H POC Glucose 225 H Laboratory Data (last 24hrs): 08/29/18 08/29/18 08/29/18 14:55 17:39 21:46 Potassium 4.6 D 4.4 4.5 Carbon Dioxide 18 L 18 L 17 L Anion Gap 14.0 H 15.0 H 15.0 H Creatinine 1.48 H D 1.30 1.32 Est Cr Clr Drug Dosing 103.3 117.6 115.8 08/30/18 08/30/18 08/30/18 01:19 06:17 09:21 Potassium 4.1 4.1 4.3 Carbon Dioxide 19 L 20 L 19 L Anion Gap 11.0 10.0 13.0 H Creatinine 1.27 1.33 1.34 Est Cr Clr Drug Dosing 120.3 114.9 114.1 HbA1c: Hemoglobin A1c 14.2 % (4.5-5.6) H 08/29/18 14:55 - Recent Pertinent Medications Outpatient Anti-diabetic Regimen: * N/A * A1c = 14.2 % on 08/29/18 Risk Factors for Insulin Resistance: * Steroids: none * Infection: none * Pressors: none * IVF: was on D5 1/2 NS @125 ml/hr * Recent Surgery: none * Diet: NPO changed to DM1 * Mechanical Ventilation: N/A - Assessment & Plan Assessment & Plan: ASSESSMENT: * 18 y/o M admitted with DKA yesterday. Patient has new diagnosis of Type 1 Diabetes. HbA1c = 14.2% * Patient was started on IV fluids and insulin drip per DKA protocol. Currently it has been 24 hrs since these were started. * Patient was NPO until lunch today. * BSGs have been > 200 since around 4 pm yesterday but insulin drip has been running steadily at 1.4 units/hr. * Attempt to transition off the drip by giving 35 units of Lantus this afternoon based on 1.4 units/hr x 24 hrs then starting Novolog CF/CR based on weight and stress of 2. D/c drip 6 hrs after Lantus or if it turns off on its own. * AG was slightly elevated at 13 this AM but was previously trending down. * Will check BMP and add overnight checks to make sure AG is closed and CO2 is normal. PLAN FOR INPATIENT GLYCEMIC CONTROL: * Continue IV insulin infusion per moderate stress protocol until AG and CO2 is normal and BSGs in goal range. * Goal Range 150 - 200 mg/dl * If criteria met, will transition off insulin drip after 6 hrs of Lantus dose. * Basal insulin: * Lantus 35 units SQ today afternoon. * Bolus insulin * NovoLog per scale ACHS or Q6hrs while NPO + overnight at 00 and 04 * Goal Range: Low 120 mg/dL - High 160 mg/dL * Correction Factor: 20 mg/dL/unit * Nutritional / Prandial insulin per carb ratio of 1 unit per 7 grams CHO consumed * Please note that the plan above was derived based on current level of insulin resistance and hospital stress. These recommendations are appropriate for inpatient admission only. Plan of care upon discharge will need to be reassessed to avoid potential outpatient hypo/hyperglycemia. Thank you.
[2018-08-30 15:58] LABS: BUN Creatinine Ratio 9.9 (10-20); Calcium 9.7 mg/dl (8.5-10.1); Creatinine Clr Calc Pharmacy 104.7 ml/min; Est GFR (African American) 79.1; Est GFR (Non-African American) 68.3; Potassium 4.3 mmol/L (3.5-5.1)
[2018-08-30 18:52] LABS: BUN Creatinine Ratio 10.2 (10-20); Calcium 8.9 mg/dl (8.5-10.1); Creatinine Clr Calc Pharmacy 101.2 ml/min; Est GFR (Non-African American) 65.5
[2018-08-30] MEDS ORDERED: DC IV INSULIN INFUSION 1 EA DEVI ONE (19:00)
[2018-08-30] MEDS ORDERED: INSULIN GLARGINE SOLOSTAR 100 UNITS/ML 3 ML PEN SC SCH (21:00)
--- NOTE | 2018-08-30 22:38 | Hospitalist Progress Note ---
Date of Service August 30, 2018 Assessment & Plan (1) DKA (diabetic ketoacidoses): 18yo obese male presenting with DKA, new diagnosis of DM. Patient with one month of polyuria/polydipsia, occasional blurry vision and loss of appetite. Patient with family history of Type II DM. Labs with anion gap of 19, BS of 669, +urinary ketones and serum b-hydroxybutyric acid. Corrected Nm=988. K elevated at 5.9 with no EKG changes. Patient afebrile, hemodynamically stable, awake/alert and appropriate. Type I vs Type II? Patient will be bridged as anion gap is closed. Will have patient eat, and will stop d5 water. Will recheck BMP tomorrow anticipate discharge in AM. Updated mother. (2) Hypercalcemia: Ca is mildly elevated at 10.6 on admission. Most likely secondary to underlying DKA and dehydration This improved the following day. -Treatment as above -Continue to monitor (3) Hyperkalemia: Resolved. will monitor (4) OLGA LIDIA (acute kidney injury): Improved but remains elevated at 1.21 from 1.51. Will give IVF and monitor Ppx - Patient low risk for DVT, no ppx indicated Code - Full Spent 35 minutes in management of patient. Subjective 18 yo male who is hospitalized for DKA. Patient reports he has no recollection of being diabteic. His mother is at bedside and is updated. She states he has been increasing his weight throughout this past year. He has gained about 40 pounds. She also states that he has been having symptoms consistent with diabetes for over 6 months. Review of Systems Constitutional: + weakness and + weight gain; no fever and no body aches Eyes: no blind spots and no discharge Ear, Nose, Mouth, Throat: no ear pain and no tinnitus Respiratory: no cough and no dyspnea Cardiovascular: no chest pain Gastrointestinal: no abdominal pain Genitourinary: + as per Subjective / HPI (polyuria, polydipsia); no dysuria Musculoskeletal: no back pain and no loss of height Integumentary: no acne Neurologic: no gait abnormality and no localized weakness Psychiatric: no anhedonia Endocrine: + fatigue, + polydipsia and + polyphagia Hematologic / Lymphatic: no easy bleeding Physical Exam Physical Exam: General: patient resting comfortably, NAD, non-toxic in appearance, AA&O x 4 Skin: warm, dry, intact, no rashes or lesions HEENT: NC/AT, PERRL, EOMI, anicteric sclera, conjunctiva without injection, external ear normal to inspection and nontender, nares patent, moist mucus membranes, dentition intact, no oropharyngeal lesions, neck supple, trachea midline, no LAD, no thyromegaly, no JVD Heart: +S1/S2, regular, no m/r/g Lungs: equal air entry bilaterally, no rales/rhonchi/wheezes Abd: +BS, soft, NT/ND, no masses/organomegaly/ascites Ext: warm, 2+ pulses in UE/LE bilaterally, no clubbing/cyanosis or edema Neuro: nonfocal, patient AA&O x 4, speech intact, no facial droop, moving all extremities on command with equal strength 5/5 Results & Data Vital Signs (Past 12 Hours) Vital Signs Temp Pulse Resp BP Pulse Ox 08/30/18 19:18 37.0 C 91 H 19 133/85 97 08/30/18 14:57 36.9 C 74 18 148/78 H 100 (1) DKA (diabetic ketoacidoses) Diabetes mellitus complication detail: without coma
[2018-08-31] MEDS: INSULIN ASPART 100 UNITS/ML 3 ML PEN SC SCH ×6 (04:15→20:22)
[2018-08-31] MEDS ORDERED: INSULIN GLARGINE SOLOSTAR 100 UNITS/ML 3 ML PEN SC SCH ×2 (10:00→21:00)
--- NOTE | 2018-08-31 14:52 | Pharmacy Report ---
Pharmacy Glycemic Short Note 2 - Date of Service August 31, 2018 - Glycemic Short BSG Results (Last 24 hours): 08/30/18 08/30/18 08/30/18 15:23 16:08 17:18 Glucose 300 H POC Glucose 267 H 261 H 08/30/18 08/30/18 08/30/18 18:03 18:12 20:30 Glucose 266 H POC Glucose 260 H 221 H 08/30/18 08/31/18 08/31/18 23:56 04:13 07:32 Glucose POC Glucose 196 H 157 H 162 H 08/31/18 11:19 Glucose POC Glucose 287 H OUTPATIENT ANTIDIABETIC REGIMEN: * N/A ASSESSMENT: * Patient received around total of 73 units of insulin yesterday, this includes the insulin drip running at 1.4 ml/hr + 40 units of basal Lantus + 3 units of Novolog from meal coverage. * Fasting BSG = 157 indicates patient received appropriate dose of Lantus yesterday. Slightly decreased AM Lantus dose to 30 units today to allow for better meal coverages with Novolog carb ratio. * HS Lantus dose based on scale in case patient's BSG trends up with max dose of upto 40 units today if required. * Nurse called to report that the high lunch BSG of 287 may have due to patient probably not getting the full dose at breakfast since he was learning to self- administer his insulin. Nurse didn't think he had the needle all the way in while administering. * Post prandial BSG was well controlled yesterday; will continue current Novolog parameters. PLAN FOR INPATIENT GLYCEMIC CONTROL: * Basal insulin * Lantus 30 units SQ this AM then HS dose based on scale as follows: - for BSG less than or equal to 160, give 0 units - for BSG greater than 160, give 10 units * Bolus insulin * NovoLog per scale ACHS or Q6hrs while NPO * Goal Range: Low 120 mg/dL - High 160 mg/dL * Correction Factor: 20 mg/dL/unit * Nutritional / Prandial insulin per carb ratio of 1 unit per 7 grams CHO consumed PLAN FOR DISCHARGE: * HbA1c = 14.3% on 08/29/18. Patient is newly diagnosed diabetic and was not on any anti-diabetic agents at home. * Per CDE, patient is willing to make lifestyle modifications to manage his diabetes. Along with this, would recommend starting Metformin ER 500 mg once daily with the evening meal + Lantus 20 to 25 units once daily in the morning as first line therapy. (Doses based on limited blood sugar data since patient was transitioned off insulin drip less than 24 hrs ago). * Would recommend prompt follow up with outpatient provider for dose titration.
--- NOTE | 2018-08-31 14:54 | Pharmacy Report ---
Pharmacy Glycemic Short Note 2 - Date of Service August 31, 2018 - Glycemic Short BSG Results (Last 24 hours): 08/30/18 08/30/18 08/30/18 15:23 16:08 17:18 Glucose 300 H POC Glucose 267 H 261 H 08/30/18 08/30/18 08/30/18 18:03 18:12 20:30 Glucose 266 H POC Glucose 260 H 221 H 08/30/18 08/31/18 08/31/18 23:56 04:13 07:32 Glucose POC Glucose 196 H 157 H 162 H 08/31/18 11:19 Glucose POC Glucose 287 H OUTPATIENT ANTIDIABETIC REGIMEN: * ASSESSMENT: * PLAN FOR INPATIENT GLYCEMIC CONTROL: * Hold outpatient oral diabetes medications * Basal insulin * Lantus [] units SQ BID * Bolus insulin * NovoLog per scale ACHS or Q6hrs while NPO * Goal Range: Low [] mg/dL - High [] mg/dL * Correction Factor: [] mg/dL/unit * Nutritional / Prandial insulin per carb ratio of 1 unit per [] grams CHO consumed PLAN FOR DISCHARGE: *
[2018-08-31] MEDS ORDERED: LACTATED RINGER'S 1,000 ML IV ONE (15:20)
[2018-08-31 15:39] LABS: Basophils # (auto) 0.01 K/uL (0-0.2); Basophils % (auto) 0.1 %; Eosinophils # (auto) 0.11 K/uL (0-0.5); Eosinophils % (auto) 1.4 %; Hematocrit (blood only) 43.3 % (42-52); Hemoglobin 15.1 g/dL (14.0-18.0); Immature Granulocytes # (auto) 0.01 K/uL (0.00-0.02); Immature Granulocytes % (auto) 0.1 %; Lymphocytes # (auto) 2.62 K/uL (1.2-3.4); Lymphocytes % (auto) 34.5 %; Mean Corpuscular Hgb Conc 34.9 g/dL (32-36); Mean Corpuscular Volume 86.8 fL (80-100); Mean Platelet Volume 10.6 fL (7.4-10.4); Monocytes # (auto) 0.38 K/uL (0.11-0.59); Neutrophils # (auto) 4.47 K/uL (1.4-6.5); Neutrophils % (auto) 58.9 %; Platelet Count 211 K/uL (130-400); RDW Coefficient of Variation 13.1 % (11.5-14.5); RDW Standard Deviation 41.7 fL (36.4-46.3); Red Blood Count 4.99 M/uL (4.7-6.1)
[2018-08-31 15:59] LABS: BUN Creatinine Ratio 13.3 (10-20); Blood Urea Nitrogen 16 mg/dl (7-18); Calcium 9.5 mg/dl (8.5-10.1); Carbon Dioxide 18 mmol/L (21-32); Chloride 105 mmol/L (98-107); Creatinine Clr Calc Pharmacy 127.2 ml/min; Est GFR (African American) 99.3; Est GFR (Non-African American) 85.7; Glucose 203 mg/dl (70-99); Potassium 3.9 mmol/L (3.5-5.1); Sodium 136 mmol/L (136-145)
[2018-08-31 16:10] LABS: Troponin I < 0.015 ng/ml (0-0.045)
[2018-08-31] MEDS: LACTATED RINGER'S 1,000 ML IV SCH (19:18)
[2018-09-01] MEDS: LACTATED RINGER'S 1,000 ML IV SCH ×2 (03:10→11:55)
[2018-09-01 06:34] LABS: BUN Creatinine Ratio 12.2 (10-20); Calcium 8.7 mg/dl (8.5-10.1); Creatinine Clr Calc Pharmacy 155.5 ml/min; Est GFR (African American) 126.5; Est GFR (Non-African American) 109.2; Magnesium 1.5 mg/dl (1.8-2.4); Potassium 3.2 mmol/L (3.5-5.1)
--- NOTE | 2018-09-01 07:43 | Hospitalist Progress Note ---
Date of Service August 31, 2018 Assessment & Plan (1) DKA (diabetic ketoacidoses): 18yo obese male presenting with DKA, new diagnosis of DM. Patient with one month of polyuria/polydipsia, occasional blurry vision and loss of appetite. Patient with family history of Type II DM. Labs with anion gap of 19, BS of 669, +urinary ketones and serum b-hydroxybutyric acid. Corrected Bo=779. K elevated at 5.9 with no EKG changes. Patient afebrile, hemodynamically stable, awake/alert and appropriate. Type I vs Type II? Anion gap remains closed but is upper limit. Patient appears to be somehwat dehydrated as creatinine remains elevated and patient is dizzy. Will keep patient in hosptial for another day. Updated mother. (2) Hypercalcemia: Ca is mildly elevated at 10.6 on admission. Most likely secondary to underlying DKA and dehydration This improved the following day. -Treatment as above -Continue to monitor (3) Hyperkalemia: Resolved. will monitor (4) OLGA LIDIA (acute kidney injury): Improved but remains elevated at 1.21 from 1.51. Will give IVF and monitor Ppx - Patient low risk for DVT, no ppx indicated Code - Full Spent 25 minutes in management of patient. Subjective Patient reports feeling well, except for dizziness when standing. Patient denies any other symptoms Review of Systems Review of Systems: All systems reviewed & are unremarkable except as noted in HPI & below Physical Exam Physical Exam: General: patient resting comfortably, NAD, non-toxic in appearance, AA&O x 4 Skin: warm, dry, intact, no rashes or lesions HEENT: NC/AT, PERRL, EOMI, anicteric sclera, conjunctiva without injection, external ear normal to inspection and nontender, nares patent, moist mucus membranes, dentition intact, no oropharyngeal lesions, neck supple, trachea midline, no LAD, no thyromegaly, no JVD Heart: +S1/S2, regular, no m/r/g Lungs: equal air entry bilaterally, no rales/rhonchi/wheezes Abd: +BS, soft, NT/ND, no masses/organomegaly/ascites Ext: warm, 2+ pulses in UE/LE bilaterally, no clubbing/cyanosis or edema Neuro: nonfocal, patient AA&O x 4, speech intact, no facial droop, moving all extremities on command with equal strength 5/5 Results & Data Vital Signs (Past 12 Hours) Vital Signs Temp Pulse Resp BP Pulse Ox 08/31/18 11:11 36.6 C 91 19 135/89 98 (1) DKA (diabetic ketoacidoses) Diabetes mellitus complication detail: without coma
[2018-09-01] MEDS ORDERED: POTASSIUM CHLORIDE 20 MEQ TABCR PO ONE (08:00)
[2018-09-01] MEDS ORDERED: INSULIN GLARGINE SOLOSTAR 100 UNITS/ML 3 ML PEN SC ONE (08:30)
[2018-09-01] MEDS: INSULIN ASPART 100 UNITS/ML 3 ML PEN SC SCH (08:32)
--- OUTSIDE RECORDS SUMMARY | 2018-09-04 16:13 | External Medical Summary | Continuity of Care Document ---
:2000 Author Name Cuong Hale, Provider Address Unavailable Unavailable , Care Team Providers Name Role Phone Bernice Naik Unavailable [email or web address] [email or web address], UNKNOWN Unavailable Unavailable Problems Active medical history not documented Allergies and Adverse Reactions Allergy history not documented Medications Medications not documented Procedures Procedures not documented Immunizations Immunizations not documented Plan of Treatment Planned Observations Planned Goals not documented Results No Known Results Results not documented Encounters Appointment; Bernice Barker CRNP 04-Sep-2018 10:00 Encounter Diagnosis: Problem not documented
[2018-09-06 04:17] LABS: Glutamic Acid Decarboxylase 65 <5 IU/mL (<5)
--- NOTE | 2018-09-07 08:27 | Discharge Summary ---
Date of Service September 01 2018 Admission HPI Per Admitting Provider Sha Pastor is a 18yo male presenting with DKA. Patient reports experiencing polydipsia and polyuria for approximately one month. Also with loss of appetite over the last week and occasional blurry vision. He also reports poor sleep. Patient felt ill today, was breathing hard which prompted him to seek medical care. Patient states that he feels thirsty, otherwise no complaints. On arrival to the ER he was found to be afebrile, hypertensive initially at 165/106. Blood work confirmed anion gap, elevated blood sugar at 669, UA positive for ketones and BHB level of 76.76. Patient also with mild OLGA LIDIA, BUN of 23 and Cr of 1.96. ER Course: NSS x 3 L, insulin gtt Principal Diagnosis DKA Discharge Exam General: patient resting comfortably, NAD, non-toxic in appearance, AA&O x 4 Skin: warm, dry, intact, no rashes or lesions HEENT: NC/AT, PERRL, EOMI, anicteric sclera, conjunctiva without injection, e xternal ear normal to inspection and nontender, nares patent, moist mucus membranes, dentition intact, no oropharyngeal lesions, neck supple, trachea midline, no LAD, no thyromegaly, no JVD Heart: +S1/S2, regular, no m/r/g Lungs: equal air entry bilaterally, no rales/rhonchi/wheezes Abd: +BS, soft, NT/ND, no masses/organomegaly/ascites Ext: warm, 2+ pulses in UE/LE bilaterally, no clubbing/cyanosis or edema Neuro: nonfocal, patient AA&O x 4, speech intact, no facial droop, moving all extremities on command with equal strength 5/5 Discharge Data Allergies Allergy/AdvReac Type Severity Reaction Status Date / Time pollen extracts Allergy Sneezing Unverified 08/29/18 10:04 Hospital Course (1) DKA (diabetic ketoacidoses): 18yo obese male presenting with DKA, new diagnosis of DM. Patient with one month of polyuria/polydipsia, occasional blurry vision and loss of appetite. Patient with family history of Type II DM. Labs with anion gap of 19, BS of 669, +urinary ketones and serum b-hydroxybutyric acid. Corrected Ie=432. K elevated at 5.9 with no EKG changes. Patient afebrile, hemodynamically stable, awake/alert and appropriate. Type I vs Type II? Anion gap remains closed but is upper limit. Patient improved with IVF. Patient anion remains closed on day of discharge and HR is back to normal. patient reports he will be exercising more and will be lifting weights. Explained to keep a diary and to be careful if his bood sugars drop. He will likely require less insulin as he begins to lose weight. Patient will be following with his provider back at home. (2) Hypercalcemia: Ca is mildly elevated at 10.6 on admission. Most likely secondary to underlying DKA and dehydration This improved the following day. -Treatment as above -Continue to monitor (3) Hyperkalemia: Resolved. will monitor (4) OLGA LIDIA (acute kidney injury): Improved but remains elevated at 1.21 from 1.51. Will give IVF and monitor Ppx - Patient low risk for DVT, no ppx indicated Code - Full Total Time Total Time Spent Total Time Spent (In Minutes): 31 Total Time Includes: Examination of the Patient, Discharge Planning and Medication Reconciliation Discharge Plan Discharge Items Patient Disposition: Home - Self-Care Reason For Visit: DKA Discharge Diagnosis: DKA Discharge Goals: Decrease discomfort Activity: Resume your previous activity Non-emergency contact: Primary Care Provider Call non-emergency contact if: you have any medication questions Follow-up/Referrals: Bernice Barker CRNP, MS, [employer] [Primary Care Provider] - 09/04/18 9:00 am (IMPORTANT APPOINTMENT INFORMATION Please, follow up at [facility] Internal Medicine Office with Bernice HANNAH on TuesdaySeptember 04 at 9:00 am. *The office is located in [address] of [facility]. This is the big building located next to this hospital. The address is [address] [place] [address]. If you need to change this appointment, call the office at [phone]. PLEASE, PRIOR TO THIS APPOINTMENT, CALL YOUR INSURANCE COMPANY AND ASK ABOUT COVERAGE, IN NETWORK / OUT OF NETWORK, FOR THIS APPOINTMENT. BE SURE TO TAKE YOUR INSURANCE CARD AND A PHOTO ID WITH YOU TO THIS APPOINTMENT.) Diet: Carb Consistent or DM2 Addtl Provider Instructions: Followup with PCP in 1 week. Take 8 am dose. Keep diary of blood sugar Prescriptions: New metformin 500 mg tablet extended release 24 hr 500 mg PO DAILY Qty: 30 RF: 0 Lantus Solostar U-100 Insulin 100 unit/mL (3 mL) insulin pen 30 units SQ DAILY Qty: 9 RF: 0 Lantus Solostar U-100 Insulin 100 unit/mL (3 mL) insulin pen 30 units SQ DAILY Qty: 9 RF: 0 metformin 500 mg tablet extended release 24 hr 500 mg PO DAILY Qty: 30 RF: 0 Continued Claritin 10 mg PO DAILY RF: 0 Flonase Allergy Relief 1 spray DEBORA DAILY RF: 0 Stand-Alone Forms: [facility] Discharge Orders: Discharge Order (Routine); Ordered 09/01/18 Ordered By: James Bo Admission Data Admit Date/Time: 08/29/18 12:22 Attending Provider: James Bo Admit Provider: Madison Morales Primary Care Provider: Bernice Barker Service: Medical Other Interventions: Discharge Summary Assessment (RN) Last Done: 09/01/18 11:29 DC Date/Time DO NOT enter until pt leaves facility: 09/01/18 12:42
== END 2018-09-01 12:42 | disposition home or self-care (01) | DRG 638 ==
LOC: ED 09:25 → 2S 12:22 → SUATTDRO 12:22 → 2S 13:10 → 4E 08-31 17:54
DX: R35.0 Frequency of micturition; R63.1 Polydipsia; R42 Dizziness and giddiness; E83.52 Hypercalcemia; N17.9 Acute kidney failure, unspecified; Z83.3 Family history of diabetes mellitus; R53.1 Weakness; E11.10 Type 2 diabetes mellitus with ketoacidosis without coma; E87.5 Hyperkalemia; E86.0 Dehydration